=== PATIENT | female | born 1985 | race Caucasian/White ===

== ENCOUNTER 2019-01-15 10:12 | Day surgery (SDC) | payer BC ==
[~2019-01-15] VITALS: Ht 152.4 cm; Wt 101.2 kg
[2019-01-15] VITALS (17 sets, daily range): BP systolic 99–123; BP diastolic 54–92; PULSE 72–98; RESP 9–24; Ht 152.4 cm; Wt 101.2 kg
[2019-01-15] MEDS ORDERED: METOCLOPRAMIDE 10 MG INJ IV PRN (11:30)
[2019-01-15] MEDS ORDERED: EPHEDrine 25 MG/5 ML SYG IV PRN (11:30)
[2019-01-15] MEDS ORDERED: FENTAnyl 50 MCG/ML VIAL IV PRN ×2 (11:30)
[2019-01-15] MEDS ORDERED: OXYCODONE/ACETAMINOPHEN (5/325) TAB PO PRN (11:30)
[2019-01-15] MEDS ORDERED: HYDROmorphONE 1 MG/5 ML IV SYRINGE IV PRN ×2 (11:30)
--- NOTE | 2019-01-15 11:30 | PREAC ---
Date/Time of Note Date/Time of Note DATE: 01/15/19 TIME: 11:29 Anesthesia Eval and Record Evaluation Time Pre-Procedure Interview DATE: 01/15/19 TIME: 11:29 Age 33 Sex female NPO: 8 hrs Preoperative diagnosis Right Heel Tumor Medial Aspect of foot Planned procedure Excision of Right Medial Heel Tumor Past Medical History Past Medical History: None Surgery & Anesthesia Issues No known issue Meds Anticoagulation: No Beta Brian within 24 hr: No Reason Beta Brian not given: Pt. not on B-Brian Meds reviewed: Yes Allergies Allergies Reviewed: Yes Labs/Studies Labs Reviewed: Reviewed by anesthesiologist test: Negative Studies: ECG (n/a), CXR (n/a) Pre-procedure Exam Airway: Adequate mouth opening, Adequate thyromental dist Mallampati: Mallampati II Teeth: Normal Lung: Normal Heart: Normal ASA Physical Status ASA physical status: 2 Emergency: None Planned Anesthetic General/MAC: LMA Nerve block: Sciatic (right) Planned Pain Management Single shot nerve block, Parenteral pain med Pre-operative Attestations Prior to commencing anesthesia and surgery, the patient was re-evaluated, there was verification of: *The patient's identity *The results of appropriate recent lab work and preoperative vital signs *The above evaluation not changing prior to induction *Anesthetic plan, risk benefits, alternative and complications discussed with patient/family; questions answered; patient/family understands, accepts and wishes to proceed. PRESTON SCHRADER MD Jan 15, 2019 11:30
[2019-01-15] MEDS ORDERED: LACTATED RINGER'S 1,000 ML IV SCH (12:00)
[2019-01-15] MEDS ORDERED: BUPIVACAINE 0.5% (SDV) 30 ML INJ ONE (12:33)
--- NOTE | 2019-01-15 12:54 | HPN ---
Date/Time of Note Date/Time of Note DATE: 01/15/19 TIME: 12:48 Interval H&P Admission Note Pt. seen H&P reviewed: No system changes CRISTIAN ALBERTS DPM Jan 15, 2019 12:54
[2019-01-15] MEDS ORDERED: FENTAnyl 50 MCG/ML VIAL ONE ×2 (12:59→13:12)
[2019-01-15] MEDS ORDERED: MIDAZOLAM 1 MG/ML 2 ML INJ ONE (12:59)
[2019-01-15] MEDS ORDERED: PROPOFOL 20 ML ONE (12:59)
[2019-01-15] MEDS ORDERED: CEFAZOLIN 1 GM INJ ONE ×2 (12:59→13:11)
[2019-01-15] MEDS ORDERED: ROPIVACAINE 0.2% 20 ML VIAL ONE (13:03)
[2019-01-15] MEDS ORDERED: KETOROLAC 30 MG INJ ONE (13:11)
[2019-01-15] MEDS ORDERED: METOCLOPRAMIDE 10 MG INJ ONE (13:11)
[2019-01-15] MEDS ORDERED: DEXAMETHASONE 4 MG/ML 5 ML INJ ONE (13:11)
[2019-01-15] MEDS ORDERED: ONDANSETRON 4 MG INJ ONE ×2 (13:11→13:45)
[2019-01-15] MEDS ORDERED: POVIDONE IODINE 10% 28.4 GM OINT ONE (13:32)
--- NOTE | 2019-01-15 13:51 | SIPON ---
Date/Time of Note Date/Time of Note DATE: 01/15/19 TIME: 13:46 Operative Report Preoperative Diagnosis Preop diagnosis is cyst medial aspect right foot Postoperative Diagnosis Op diagnosis same Operation/Procedure Performed Excision of cyst with closure Surgeon see signature line office services assistant None Anesthesia: general Estimated blood loss: minimal Transfusion Required none Specimen Specimen is cystic material ganglionic Grafts/Implants none Complications none CRISTIAN ALBERTS DPM Jan 15, 2019 13:51
[2019-01-15] MEDS: ONDANSETRON 4 MG INJ IV PRN ×2 (14:06→15:23)
--- NOTE | 2019-01-15 14:08 | PAC ---
Date/Time of Note Date/Time of Note DATE: 01/15/19 TIME: 14:08 Post-Anesthesia Notes Post-Anesthesia Note Last documented vital signs Vital Signs Date Temp Pulse Resp B/P (MAP) Pulse Ox O2 O2 Flow FiO2 Time Delivery Rate 01/15/19 99.8 13:55 01/15/19 73 18 123/57 99 Room Air 11:33 (79) Activity: WNL Respiratory function: WNL Cardiovascular function: WNL Mental status: Baseline Pain reasonably controlled: Yes Hydration appropriate: Yes Nausea/Vomiting absent: Yes PRESTON SCHRADER MD Jan 15, 2019 14:08
--- NOTE | 2019-01-15 14:44 | PREOPHP ---
DATE OF ADMISSION: 01/15/2019 SUBJECTIVE: The patient is being admitted to the hospital for elective foot surgery, palliative treatment unsuccessful. The patient has been explained surgery, complications, alternatives of elective foot surgery. ALLERGIES: The patient denies allergies to any medicines. MEDICATIONS: Denies taking any medicine. REVIEW OF SYSTEMS: Denies any history of heart, lung, liver, kidney, thyroid problems. FAMILY HISTORY: Negative for diabetes. SOCIAL HISTORY: Negative for smoking, alcohol. See any other pertinent history by Dr. Yadav. PHYSICAL EXAMINATION: LOWER EXTREMITIES: Shows the DP and PT equal and regular. NEUROLOGICAL: Negative for pathology. DERMATOLOGICAL: Shows a cyst on the medial aspect of the heel skin in right foot. MUSCULOSKELETAL: Negative for pathology. FINAL DIAGNOSIS: Cystic/tumor right foot. Dictated By: CRISTIAN BRAUN/NICHOLAS Conf#: [id number] DID#: [id number] MTDD
[2019-01-15] MEDS ORDERED: ACETAMINOPHEN 500 MG TAB PO STA (15:56)
--- NOTE | 2019-01-15 17:00 | OPR ---
DATE OF OPERATION: 01/15/2019 PREOPERATIVE DIAGNOSIS: Cyst/tumor, right foot. POSTOPERATIVE DIAGNOSIS: Excision of cystic tumor, right foot. SURGEON: Cristian Loya DPM DESCRIPTION OF PROCEDURE: The patient was brought to the surgical suite, placed in the supine position. The patient was under general anesthesia and also had ankle block. The patient had a tourniquet at mid-thigh and the patient had sterilely prepped and draped. Findings were consistent with the pre and postoperative diagnosis. The first incision was longitudinal incision on the medial aspect in the area of calcaneus on the right foot. Using sharp and blunt dissection, the incision was carried deep. The fluid from the cyst was excised and sent to pathology. Subcutaneous tissue was cleansed and all tissue that was abnormal was excised. The area was then cleansed again and the subcutaneous tissue was coaptated using 3-0 Vicryl and skin was coaptated using 5-0 Nylon. The area then had a dressing of half inch Steri-Strips, Betadine ointment, 4 x 4's impregnated with Betadine solution and Madelin with an outer layer of Coban made into a semi-compressive dressing. The patient tolerated surgery well and was returned to recovery room in satisfactory condition. Dictated By: CRISTIAN BRAUN/NICHOLAS Conf#: [id number] DID#: [id number] MTDD
== END 2019-01-15 16:30 | disposition home or self-care (01) ==
LOC: SDS 10:12
PROVIDERS: ATTEND Podiatrist
DX: M67.471 Ganglion, right ankle and foot (principal)
CPT/HCPCS: 28090; 84703; 88304; J0690; J1100; J1885; J2250; J2405; J2765; J2795; J3010; Z7512; Z7610